=== PATIENT | female | born 1955 | race Caucasian/White ===

== ENCOUNTER 2017-02-09 08:47 | Emergency (ER) | payer BC ==
[~2017-02-09] VITALS: Ht 170.2 cm; Wt 88.5 kg
[2017-02-09 08:50] VITALS: Ht 170.2 cm; Wt 88.5 kg
[2017-02-09] MEDS ORDERED: LEVO137T26 PO (09:21)
[2017-02-09] MEDS ORDERED: PRAV40TA76 PO (09:21)
[2017-02-09] MEDS ORDERED: GABA300C16 PO (09:21)
[2017-02-09] MEDS ORDERED: LISI1TAB4 PO (09:22)
--- NOTE | 2017-02-09 09:40 | ERA ---
ER Documentation Chief Complaint Date/Time DATE: 02/09/17 TIME: 09:38 Chief Complaint sob and cp in afternoons x wks HPI 61-year-old woman presents with sharp burning substernal chest pain and intermittent shortness of breath 1 week. She states she falls asleep during mid afternoon and feels extremely sleepy usually during the afternoons, although this is been going on for a few months. She states she states the pain is constant nonexertional nonradiating. She has had no cough, no new leg swelling, no weight loss, no fevers or chills, no headache or blurry vision. Patient uses low-dose aspirin daily and has a long history of hypothyroidism, states her thyroid levels were checked in the last year and were normal ROS All systems reviewed and are negative except as per history of present illness. Medications Home Meds Reported Medications Lisinopril/Hydrochlorothiazide (Lisinopril-Hctz 10-12.5 mg Tab) 1 Each Tablet, 1 EACH PO DAILY, TAB 02/09/17 Gabapentin* (Gabapentin*) 300 Mg Capsule, 300 MG PO QHS, #60 CAP 02/09/17 Levothyroxine Sodium* (Levoxyl*) 137 Mcg Tablet, 137 MCG PO BEFORE BREAKFAST, # 30 TAB 02/09/17 Pravastatin Sodium* (Pravastatin Sodium*) 40 Mg Tablet, 40 MG PO HS, TAB 02/09/17 Allergies Allergies: Coded Allergies: Iodine and Iodide Containing Produc (Unverified Allergy, Unknown, RED BOILS ON SKIN, 02/09/17) codeine (Unverified Allergy, Unknown, STOMACH UPSET, 02/09/17) PMhx/Soc Hypertension, left breast carcinoma status post mastectomy, hypothyroidism History of Surgery: Yes (Left Mastectomy) Hx Neurological Disorder: Yes (Fibromyalgia) Hx Cardiac Disorders: Yes (HTN) Hx Psychiatric Problems: Yes (PTSD) Hx Miscellaneous Medical Probl: Yes (Thyroid, high chol) Hx Alcohol Use: No Hx Substance Use: No Hx Tobacco Use: No Smoking Status: Never smoker FmHx Family History: No diabetes Physical Exam Vitals Vital Signs Date Time Temp Pulse Resp B/P Pulse Ox O2 Delivery O2 Flow Rate FiO2 02/09/17 12:06 98.1 54 16 115/72 100 Room Air 02/09/17 11:05 61 16 127/88 100 Room Air 02/09/17 09:11 64 16 152/98 100 Nasal Cannula 2.0 02/09/17 09:11 Nasal Cannula 2.0 02/09/17 08:50 78.9 70 20 157/78 100 Physical Exam GENERAL: Well-developed, well-nourished, well-hydrated, in no apparent distress , looks nontoxic in appearance HEENT: Moist mucous membranes, pink conjunctiva, no cervical spine tenderness or step-off deformities, no goiter, no jaundice or icterus, extraocular movements intact without pain. No submandibular induration, and no pharyngeal erythema NEURO: Alert and oriented 3, cranial nerves II through XII intact bilaterally, pupils equal round reactive to light, no focal deficits or facial asymmetry, sensation intact distally Strength 5/5 in upper and lower extremities bilaterally CARDIAC: Regular rate and rhythm, no murmurs rubs or gallops LUNGS: Clear bilaterally no wheezing crackles or stridor ABDOMEN: Soft nontender, no guarding, no rigidity, no rebound, no psoas sign no obturator sign. Normoactive bowel sounds SKIN: Warm and dry to touch, no abrasions, contusions, or hematomas, no lacerations, no ecchymosis, no target lesions, and without ulcers EXTREMITIES: No clubbing cyanosis, bilateral lower extremity nonpitting edema, pulses equal bilateral, no skin erythema or breakdown PSYCH: Normal affect without agitation or irritability Result Diagram: 02/09/1791902/09/17 0920 Results 24 hrs Laboratory Tests Test 02/09/17 09:20 02/09/17 10:35 White Blood Count 6.710^3/ul Red Blood Count 4.8010^6/ul Hemoglobin 14.5g/dl Hematocrit 42.1% Mean Corpuscular Volume 87.7fl Mean Corpuscular Hemoglobin 30.2pg Mean Corpuscular Hemoglobin Concent 34.4g/dl Red Cell Distribution Width 11.7% Platelet Count 08916^3/UL Mean Platelet Volume 11.5fl Neutrophils % 47.7% Lymphocytes % 40.5% Monocytes % 9.2% Eosinophils % 1.7% Basophils % 0.6% Nucleated Red Blood Cells % 0.0/100WBC Neutrophils # 3.210^3/ul Lymphocytes # 2.710^3/ul Monocytes # 0.610^3/ul Eosinophils # 0.110^3/ul Basophils # 0.010^3/ul Nucleated Red Blood Cells # 0.010^3/ul Sodium Level 141mmol/L Potassium Level 3.5mmol/L Chloride Level 98mmol/L Carbon Dioxide Level 29mmol/L Anion Gap 18 Blood Urea Nitrogen 20mg/dl Creatinine 0.96mg/dl Glucose Level 107mg/dl Calcium Level 9.5mg/dl Total Bilirubin 0.3mg/dl Direct Bilirubin 0.00mg/dl Indirect Bilirubin 0.3mg/dl Aspartate Amino Transf (AST/SGOT) 23IU/L Alanine Aminotransferase (ALT/SGPT) 31IU/L Alkaline Phosphatase 103IU/L Troponin I < 0.012ng/ml B-Type Natriuretic Peptide 22PG/ML Total Protein 8.4g/dl Albumin 4.6g/dl Globulin 3.80g/dl Albumin/Globulin Ratio 1.21 Lipase 87U/L Thyroid Stimulating Hormone (TSH) 4.490MIU/L Free Thyroxine 1.19ng/dl Free Triiodothyronine (T3) pg/mL 3.63pg/ml Random Cortisol 9.2ug/dl Urine Color LT. YELLOW Urine Clarity CLEAR Urine pH 5.5 Urine Specific [place] <=1.005 Urine Ketones NEGATIVE Urine Nitrite NEGATIVE Urine Bilirubin NEGATIVE Urine Urobilinogen 0.2 E.U./dL Urine Leukocyte Esterase 1+ Urine Microscopic RBC NONE SEEN/HPF Urine Microscopic WBC 0-2/HPF Urine Epithelial Cells RARE Urine Bacteria RARE Urine Hemoglobin NEGATIVE Urine Glucose NEGATIVE% Urine Total Protein NEGATIVE Procedures/MDM IV line was established patient was placed on quality assurance monitor body rhythm strip revealed a sinus rhythm at about 60 bpm with upright P and T waves. Patient was afebrile. EKG performed, read by me: 60 bpm, normal sinus rhythm, normal axis, no acute ST segment changes, narrow QRS complex, with good R-wave progression in precordial leads. One AP view of the chest performed, read by me reveals no acute infiltrates, normal mediastinum, sharp costophrenic and cardiac borders, no air under the diaphragm. Otherwise unremarkable chest x-ray. CBC was normal, electrolytes revealed dehydration with a BUN/creatinine of 20/1 , liver function tests are normal, troponin was negative. BNP was low. Cortisol level was within normal limits, thyroid panel was within normal limits. Urine analysis was unremarkable. Patient's workup here was unremarkable, her vital signs are normal and she appears well. She can be managed as an outpatient, I recommended provocative stress testing and follow-up with her PMD and manager field services within the next 2 days. She understood these instructions and agreed to plan. Differential diagnoses considered, included but not limited to acute coronary syndrome, pulmonary embolism, aortic dissection, abdominal aortic aneurysm, sepsis, stroke, meningitis, encephalitis, pneumonia, appendicitis, cholecystitis , bowel obstruction, pyelonephritis, nephrolithiasis, cystitis, as well as metabolic, hematologic, and electrolyte abnormalities. As well as abscess, cellulitis, fractures, and dislocations. Patient feels much better at this time, and vital signs are normal, symptoms have improved. I did give strict instructions to return to the ED if symptoms continue or worsen, patient will otherwise follow-up with primary care physician. Patient understood instructions and agreed to plan. Disclaimer: Inadvertent spelling or grammatical errors are likely due to EHR/ dictation software use and do not reflect on the overall quality of patient care. Departure Diagnosis: Primary Impression: Chest pain Qualified Code: R07.9 - Chest pain, unspecified type Additional Impression: Weakness Condition: LIONEL Perkins MD February 09, 2017 09:40
[2017-02-09 09:41] LABS: ADD SCAN DIFF NO
[2017-02-09 09:43] LABS: BASOPHILS % 0.6 % (0.0-2.0); EOSINOPHILS # 0.1 10^3/ul (0.0-0.5); EOSINOPHILS % 1.7 % (0.0-7.0); HEMATOCRIT 42.1 % (37.0-47.0); HEMOGLOBIN 14.5 g/dl (12.0-16.0); LYMPHOCYTES # 2.7 10^3/ul (0.8-2.9); LYMPHOCYTES % 40.5 % (15.0-51.0); MEAN CORPUSCULAR HEMOGLOBIN 30.2 pg (29.0-33.0); MEAN CORPUSCULAR HGB CONC 34.4 g/dl (32.0-37.0); MEAN CORPUSCULAR VOLUME 87.7 fl (82.0-101.0); MEAN PLATELET VOLUME 11.5 fl (7.4-10.4); MONOCYTE # 0.6 10^3/ul (0.3-0.9); MONOCYTES % 9.2 % (0.0-11.0); NEUTROPHIL # 3.2 10^3/ul (1.6-7.5); NEUTROPHILS % 47.7 % (39.0-77.0); PLATELET COUNT 236 10^3/UL (140-415); RED CELL DISTRIBUTION WIDTH 11.7 % (11.5-14.5); WHITE BLOOD COUNT 6.7 10^3/ul (4.8-10.8)
--- NOTE | 2017-02-09 09:44 | RADRPT ---
PROCEDURE: Chest Radiograph. CLINICAL INDICATION: Chest pain. TECHNIQUE: Single frontal chest radiograph. COMPARISON: None available FINDINGS: Heart size is within normal limits. Atherosclerotic calcifications are present. No infiltrate or effusion is seen. The bones are intact. Clips are noted over the left chest wall. IMPRESSION: 1. No evidence of acute cardiopulmonary disease. 2. Atherosclerotic vascular disease RPTAT: AA .Ezra Delong MD, MD Date Time Electronically viewed and signed by .Ezra Delong MD, on 02/09/2017 09:44 .B/
[2017-02-09 10:02] LABS: ALBUMIN 4.6 g/dl (3.3-4.9); CHLORIDE 98 mmol/L (97-110)
[2017-02-09 10:03] LABS: POTASSIUM 3.5 mmol/L (3.5-5.1); SODIUM 141 mmol/L (135-144)
[2017-02-09 10:05] LABS: ALBUMIN/GLOBULIN RATIO 1.21; ANION GAP 18 (8-16); ASPARTATE AMINO TRANSFERASE 23 IU/L (15-46); BILIRUBIN,INDIRECT 0.3 mg/dl (0-1.1); BILIRUBIN,TOTAL 0.3 mg/dl (0.2-1.3); CARBON DIOXIDE 29 mmol/L (21-31); CREATININE 0.96 mg/dl (0.44-1.00); TOTAL PROTEIN 8.4 g/dl (6.1-8.1)
[2017-02-09 10:06] LABS: ALANINE AMINOTRANSFERASE 31 IU/L (13-69); ALKALINE PHOSPHATASE 103 IU/L (42-121); BLOOD UREA NITROGEN 20 mg/dl (7-20); CALCIUM 9.5 mg/dl (8.4-10.2); GLUCOSE 107 mg/dl (70-220)
[2017-02-09 10:15] LABS: B-TYPE NATRIURETIC PEPTIDE 22 PG/ML (0-125)
[2017-02-09 10:20] LABS: TROPONIN-I < 0.012 ng/ml (0.00-0.12)
[2017-02-09 11:15] LABS: ADD UMIC YES; URINE BILIRUBIN (Dip) NEGATIVE (NEGATIVE); URINE BLOOD (Dip) NEGATIVE (NEGATIVE); URINE COLOR LT. YELLOW (YELLOW); URINE GLUCOSE (Dip) NEGATIVE (NEGATIVE); URINE KETONES (Dip) NEGATIVE (NEGATIVE); URINE LEUKOCYTE ESTERASE (Dip) 1+ (NEGATIVE); URINE NITRITE (Dip) NEGATIVE (NEGATIVE); URINE TOTAL PROTEIN (Dip) NEGATIVE (NEGATIVE); URINE UROBILINOGEN (Dip) 0.2 E.U./dL (0.1-1.0)
[2017-02-09 11:27] LABS: FREE T3 3.63 pg/ml (2.77-5.27)
[2017-02-09 11:29] LABS: BACTERIA,URINE RARE; URINE RBCS NONE SEEN /HPF (0)
[2017-02-09 12:06] VITALS: BP 115/72; PULSE 54; RESP 16; TEMP 98.1
== END 2017-02-09 12:08 | disposition home or self-care (01) ==
LOC: E/R 08:47
DX: R07.9 Chest pain, unspecified (principal); R53.1 Weakness; I10 Essential (primary) hypertension
CPT/HCPCS: 36415; 71010; 80053; 81001; 81003; 82533; 83690; 83880; 84439; 84443; 84481; 84484; 85025; 93005